=== PATIENT | male | born 1970 | race Two or more races ===

== ENCOUNTER 2023-03-15 20:20 | Emergency (ER) | payer OTHER, SELFPAY ==
[2023-03-15 20:45] VITALS: BP 146/87; PULSE 96; RESP 18; TEMP 36.6; O2SAT 99; BMI 21.9
--- NOTE | 2023-03-15 21:33 | ED.HEATRA ---
HPI - Head Injury General Chief complaint: Head Injury Stated complaint: head laceration work inj Time Seen by Provider: 03/15/23 21:27 Source: patient Mode of arrival: ambulatory Limitations: no limitations History of Present Illness HPI Narrative: [age] presents emergency department after hitting his head. Patient states he was in his usual state of health at work and he ran into a forklift. Patient states he is not on blood thinners he does not take any medications he denies fevers chills cough chest pain or shortness of breath. Complaint: head injury Related Data Allergies Allergy/AdvReac Type Severity Reaction Status Date / Time No Known Allergies Allergy Verified 03/15/23 20:50 Review of Systems Review of Systems: Review of systems: General: Patient denies any fever chills recent illness or falls Musculoskeletal: Denies back pain or body aches or other injuries HEENT: denies headache, runny nose, ear pain Respiratory: denies shortness of breath, cough Cardiovascular: no chest pain or palpitations : denies dysuria, frequency Abdomen: no nausea vomiting denies abdominal pain Extremities: no swelling, no pain Skin: 4 cm laceration just lateral to his right eyebrow it is medial no diaphoresis Yes all other systems are reviewed and are negative Physical Exam Vital Signs: Vital Signs: Last Vital Signs Temp 97.9 F 03/15/23 20:45 Pulse 96 03/15/23 20:45 Resp 18 03/15/23 20:45 BP 146/87 H 03/15/23 20:45 Pulse Ox 99 03/15/23 20:45 O2 Del Method Room Air 03/15/23 20:45 BMI result Body Mass Index 21.9 General: Well-appearing well-nourished in no signs of distress HEENT: Normocephalic 4 cm laceration above his right eye medial to his eyebrow Neck: No signs of JVD, no masses no tenderness or lymphadenopathy Cardiovascular: Regular rate and rhythm Respiratory: Clear to auscultation bilaterally Abdomen: Soft nontender no masses Extremities: Normal pedal pulses no signs of edema Skin: Dry warm no rashes Back: No tenderness full ROM Medical Decision Making Medical Decision Making MDM Narrative: Patient looks well I do not think the patient needs a CT of the head I will suture the eyebrow I think the patient is safe to go home. Differential Diagnosis Differential Diagnoses: The differential diagnosis associated with the presentation includes Intracranial hemorrhage facial laceration Procedures Laceration Laceration 1: Site: face Side (If applicable): right Size (cm): 4 Description: linear Depth: simple, single layer Local Anesthetic: lidocaine 1% Pre-repair: wound explored, irrigated extensively and deep structures intact Skin layer closed with: nylon Size (cm): 6-0 Number of sutures: 8 Technique: simple, interrupted Discharge Plan Discharge Clinical Impression: Closed head injury, Laceration of face Patient Disposition: Home, Self-Care Instructions: Laceration (DC), Head Injury (ED) Additional Instructions: Please return to have your sutures removed in 7 days you had 8 sutures placed If you have worsening pain signs of infection or any other concerns please return to the ED.
[2023-03-15] MEDS: Lidocaine HCl 1 % 20 ML VIAL 5 ML INFILTRATI (21:39)
== END 2023-03-15 22:18 | disposition home or self-care (01) ==
LOC: HO.ED 22:12
PROVIDERS: Emergency Provider Student in an Organized Health Care Education/Training Program
DX: S01.111A Laceration without foreign body of right eyelid and periocular area, initial encounter (principal); S09.90XA Unspecified injury of head, initial encounter; W22.09XA Striking against other stationary object, initial encounter; Y93.89 Activity, other specified; Y92.59 Other trade areas as the place of occurrence of the external cause; Y99.0 Civilian activity done for income or pay
CPT/HCPCS: 12052; 99282; 99284

== ENCOUNTER 2023-03-23 12:40 | Emergency (ER) | payer OTHER, SELFPAY ==
--- NOTE | 2023-03-23 12:53 | ED_ITS ---
HPI - General Adult General Chief complaint: Wound/Laceration Stated complaint: suture removal Time Seen by Provider: 03/23/23 12:53 Source: patient Mode of arrival: ambulatory Limitations: no limitations History of Present Illness HPI narrative: 52 yo male presents to the ER for evaluation of wound healing of forehead laceration and suture removal. He was seen here on 03/15 after he walked into the back of a truck sustaining a laceration to the right side of his forehead, 8 sutures were used to close the wound. Patient reports no issues with wound healing. There is some scabbing to the area and is starting to itch a little bit. No drainage or surrounding redness. No headaches. MD complaint: Suture removal Location: head Radiation: non-radiation Severity: mild Relieving factors: none Exacerbating factors: none Associated symptoms: denies other symptoms Treatments prior to arrival: none Related Data Allergies Allergy/AdvReac Type Severity Reaction Status Date / Time No Known Allergies Allergy Verified 03/15/23 20:50 Review of Systems Review of Systems: Yes all other systems are reviewed and are negative PMFSH Social History Social History Advance Directives: No Physical Exam ED Vital Signs: BMI result Body Mass Index 25.8 Appearance: Alert. Oriented X3. No acute distress. HEENT: 2.5 cm linear well-healing laceration above the right eyebrow, scabbing present, sutures in place. Wound is well-approximated. No surrounding erythema or drainage. Nontender. CVS: Normal heart rate and rhythm. Pulses normal. Respiratory: No respiratory distress. Skin: Skin warm and dry. Normal skin color. Normal skin turgor. No rashes. Extremities: Normal inspection times 4 Neuro: Oriented X 3. No motor deficit. No sensory deficit. Medical Decision Making Medical Decision Making [facility] Narrative: 52-year-old male presents to the ER for evaluation of a forehead laceration sustained 8 days ago requiring any sutures. Appears to be healing appropriately. A sutures removed with ease. One Steri-Strip was applied to reinforce the healing. We discussed wound care. Patient stable for discharge home. Differential Diagnosis Differential Diagnoses: The differential diagnosis associated with the presentation includes Delayed wound healing, appropriate wound healing, wound infection External Record Review External record reviewed: Outpatient record Critical Care Time Critical Care Time Critical Care Time: No Discharge Plan Discharge Clinical Impression: Encounter for removal of sutures Patient Disposition: Home, Self-Care Instructions: Stitches Removal (ED) Additional Instructions: recommend over the counter Moderna or Vitamin E on top of the healing wound to help prevent scarring n Interventions: ED Discharge Assessment Last Done: 03/23/23 13:10
[2023-03-23 13:01] VITALS: BMI 25.8
--- NOTE | 2023-03-23 13:03 | PC.NURSE ---
Pt came to ED today to get facial stitches removed. Denies pain at this time, is a/ox4. no redness or puss noted at stitches site.
== END 2023-03-23 13:17 | disposition home or self-care (01) ==
PROVIDERS: Emergency Provider Emergency Medicine
DX: Z48.02 Encounter for removal of sutures (principal); S01.81XD Laceration without foreign body of other part of head, subsequent encounter; W22.8XXD Striking against or struck by other objects, subsequent encounter
CPT/HCPCS: 99282